=== PATIENT | female | born 1975 | race Caucasian/White ===

== ENCOUNTER 2019-06-15 13:25 | Inpatient (IN) ==
--- NOTE | 2019-06-15 13:43 | EKG Report ---
Test Performed on : 06/15/2019 1:31:29 PM Test Reason : chest pain Blood Pressure : / mmHG Vent. Rate : 049 BPM Atrial Rate : 049 BPM P-R Int : 174 ms QRS Dur : 098 ms QT Int : 442 ms P-R-T Axes : 033 011 010 degrees QTc Int : 399 ms Sinus bradycardia. Otherwise normal ECG When compared with ECG of 13-AUG-2016 21:35, No significant change was found Unconfirmed Result
--- NOTE | 2019-06-15 14:28 | Diag Imaging Result Doc PS360 ---
EXAM: CHEST-2 VIEWS 06/15/2019 HISTORY: chest pain TECHNIQUE: PA and lateral chest COMMENT: There are multiple old rib fractures on the left. There is no evidence of acute cardiac or pulmonary disease. Compared to the previous examination of 10/01/2018 there has been no significant change. IMPRESSION: No acute disease. Electronically signed by Rocael Cheung 06/15/2019 2:25 PM
[2019-06-15] MEDS ORDERED: TYLENOL PO ONE (14:42)
[2019-06-15] MEDS ORDERED: ASPIRIN PO ONE (14:42)
[2019-06-15 16:16] LABS: BASO# 0.01 X1000 (0.0-0.2); BASO% 0.2 % (0.0-0.8); EOS# 0.07 X1000 (0.0-0.7); EOS% 1.1 % (0.0-10.0); HEMATOCRIT 46.7 % (37.0-47.0); HEMOGLOBIN 14.8 g/dL (12.0-16.0); LYMPH# 2.01 X1000 (1.2-3.4); LYMPH% 31.9 % (20.5-51.1); MCH 28.3 PG (27-31); MCHC 31.7 g/dL (33-37); MCV 89.3 FL (81-99); MONO# 0.68 X1000 (0.11-0.59); MONO% 10.8 % (1.7-9.3); MPV 12.2 FL (7.4-10.4); NEUT# 3.54 X1000 (1.4-6.5); PLT 131 X1000 (130-400); RBC 5.23 XMIL (4.2-5.4); RDW 16.3 % (11.5-14.5); WBC 6.31 X1000 (4.8-10.8)
[2019-06-15 16:21] LABS: URINE SOURCE CLEAN CATCH
[2019-06-15 16:30] LABS: BILIRUBIN URINE NEGATIVE (NEGATIVE); BLOOD URINE NEGATIVE (NEGATIVE); COLOR YELLOW; GLUCOSE URINE NEGATIVE (NEGATIVE); KETONE URINE NEGATIVE (NEGATIVE); LEUKOCYTES URINE NEGATIVE (NEGATIVE); NITRITE URINE NEGATIVE (NEGATIVE); PH URINE 6.5; PROTEIN URINE NEGATIVE (NEGATIVE); SP GRAVITY URINE 1.013; TURBIDITY URINE HAZY (CLEAR); UROBILINOGEN URINE NORMAL (NORMAL)
[2019-06-15 16:32] LABS: UR EPITHELIAL CELLS <10 /HPF (<10); URINE BACTERIA 4+ /HPF; URINE RBC <10 /HPF (<10); URINE WBC <10 /HPF (<10)
[2019-06-15 16:56] LABS: ALB/GLOB RATIO 1.4; CREATININE 1.2 mg/dL (0.5-0.9); TOTAL BILIRUBIN 1.28 mg/dL (0.20-1.00); TOTAL PROTEIN 6.8 g/dL (6.3-8.3)
[2019-06-15 17:28] LABS: CK INDEX 0.3 (0.0-2.5); CK-MB 1.48 ng/mL (0.0-5.0)
[2019-06-15] MEDS ORDERED: NS 1,000 ML IV ONE (18:10)
--- NOTE | 2019-06-15 18:24 | PROVIDER DOCUMENTATION ---
This chart was entered by Pennie Schroeder Scribe, acting as scribe for Urbano Madrigal MD. HPI-Chest Pain - General Chief Complaint: Chest Pain Stated Complaint: CP Time Seen by Provider: 06/15/19 14:01 Source: patient Allergies/Adverse Reactions: Patient Allergies Allergy/AdvReac Type Severity Reaction Status Date / Time No Known Allergies Allergy Verified 10/04/18 14:36 Home Medications: Home Medication List Medication Instructions Recorded Confirmed Last Taken Type Hydrocodone/Acetaminophen [[place] 1 - 2 ea PO Q4-6H PRN PRN #16 tab 10/01/18 10/04/18 Unknown Rx 5-325 Tablet] Naproxen Sodium [Anaprox Ds] 550 mg PO Q12H PRN PRN #20 tab 10/04/18 Unknown Rx - History of Present Illness-CP Nature of Presenting Problem: 44 yowf p[resents to the ed with c/o 2 weeks of bradycardia (40's), dizziness, left suprapubic, chest pain and fatigue. pt had nerve block done 2 weeks prior a nd then sx begin. pt on exam is nontoxic in appearance and in no distress. Reports that father of heart attack in his 40s Location: reports: other (rt sided chest pain) Chest Pain Radiation: reports: no radiation Quality of Pain: reports: pressure Severity in ED: mild Onset/Duration: other (2 weeks) Timing: still present, intermittent Context/Activities at Onset: reports: light activity Modifying Factors: improves with: immobilization. worse with: palpation Associated Symptoms: reports: abdominal pain (left suprapubic), dizziness, shortness of breath. denies: back pain, fever/chills, nausea, vomiting Nitro Today/Relief: no nitro taken today Aspirin Treatment Today: no aspirin today Prior Chest Pain/Cardiac Workup: reports: other (bradycardia) Similar Symptoms Previously?: No Recently Seen Here or By Another Healthcare Provider: Yes (had nereve block done 2 weeks prior) Review of Systems - Adult - REVIEW OF SYSTEMS - ADULT Constitutional: denies: chills, fever Eyes: reports: no symptoms reported Ears, Nose, Mouth & Throat: reports: no symptoms reported Cardiovascular: reports: see HPI, chest pain, palpitations (slow heart rate). denies: syncope Respiratory: reports: see HPI, shortness of breath. denies: cough, wheezing Gastrointestinal: reports: see HPI, abdominal pain (left suprapubic). denies: diarrhea, nausea, vomiting Genitourinary: reports: no symptoms reported Musculoskeletal: reports: no symptoms reported Integumentary: reports: no symptoms reported Neurological: reports: see HPI, dizziness/vertigo. denies: headache/migraines, loss of balance, seizure, slurred speech, syncope Psychiatric: reports: no symptoms reported Endocrine: reports: no symptoms reported Hematologic/Lymphatic: reports: no symptoms reported Allergic/Immunologic: reports: no symptoms reported All Other Systems: Reviewed and Negative Past History - Adult - PAST MEDICAL HISTORY-ADULT Review of Records: reports: Old Records Reviewed, Nursing Assessment Review, Medications Reviewed, Social history reviewed & non-contributory. Major Childhood Illnesses: reports: denies history Cardiovascular: reports: other (bradycardia) Respiratory: reports: denies history Gastrointestinal: reports: denies history Obstetrical/Gynecological: reports: denies history Genitourinary: reports: denies history Musculoskeletal: reports: denies history Neurological: reports: denies history Psychiatric: reports: denies history Endocrine/Immune: reports: anemia Other Conditions: reports: denies history - PRIOR SURGERIES/PROCEDURES Surgical/Procedure History: reports: cholecystectomy, , tonsillectomy - IMMUNIZATION STATUS Childhood Immunizations: See Nurse Assessment Flu Vaccine: See Nurse Assessment - FAMILY HISTORY Family History: CAD under 55yo (dad of heart attack in his 40s) - SOCIAL HISTORY Smoking: quit greater than 1 year Substance Use: denies Living Situation: family Physical Exam-General - PHYSICAL EXAM-ADULT Initial Vital Signs Reviewed: Yes - CONSTITUTIONAL General Appearance: appears well, alert, mild distress, obese, anxious - EYES Eyes: PERRL/EOMI, pink conjunctivae - HEAD, EARS, NOSE, MOUTH & THROAT HENMT: moist mucous membranes - NECK Neck: non-tender, full range of motion, supple - RESPIRATORY Respiratory: lungs clear, normal breath sounds - CARDIOVASCULAR Cardiovascular: normal peripheral pulses, bradycardia (50) - CHEST (BREASTS) Chest/Breast: tenderness (with reproducibile pain) - GASTROINTESTINAL (ABDOMEN) Abdominal Exam: normal bowel sounds, non tender, soft - GENITOURINARY Female Genitalia/Pelvic Exam: deferred Rectal Exam: deferred Hemoccult Exam: deferred - LYMPHATIC Lymphatic: no adenopathy - MUSCULOSKELETAL Back Exam: no CVA tenderness, no vertebral tenderness Extremity: normal range of motion, non-tender, normal gait, normal inspection - SKIN Integumentary: normal color, normal turgor, warm/dry - NEUROLOGIC Neurologic: grossly normal - PSYCHIATRIC Psych/Mental Status: normal mood/affect, normal thought content, normal thought process, oriented x 3 - HEART Score HEART Score: History: Slightly Suspicious HEART Score: ECG: Normal HEART Score: Age: < or = 45 Years HEART Score: Risk Factors for Atherosclerotic Disease: 1 or 2 Risk Factors Progress - PLAN OF CARE/RESULTS Progress/Plan/Lab Results: Vital Signs - 8 hr 06/15/19 13:34 06/15/19 16:22 Temperature 98.8 F Pulse Rate 50 L 51 L Respiratory Rate 20 20 Blood Pressure 145/72 122/65 O2 Sat by Pulse Oximetry 96 98 Bedside Urine ED: Urine Bedside Start: 06/15/19 14:01 Freq: Status: Active Protocol: Activity Type Activity Date Activity User E-Sign Co-Sign Detail Recorded Client Recorded Date Recorded By Document 06/15/19 14:02 [id number] 06/15/19 14:02 [id number] 06/15/19 14:02 Point of Care [Bedside Point of Care] -Lot # [id number] - Results Negative -Control Line Visible? Yes Laboratory Results - last 24 hr 06/15/19 06/15/19 06/15/19 10:31 13:34 13:34 WBC 6.31 RBC 5.23 Hgb 14.8 Hct 46.7 MCV 89.3 MCH 28.3 MCHC 31.7 L RDW Std Deviation 16.3 H Plt Count 131 MPV 12.2 H Immature Gran % (Auto) 0.0 Neut % (Auto) 56.0 Lymph % (Auto) 31.9 [place] % (Auto) 10.8 H Eos % (Auto) 1.1 Baso % (Auto) 0.2 Immature Gran # (Auto) 0.00 Neut # (Auto) 3.54 Lymph # (Auto) 2.01 [place] # (Auto) 0.68 H Eos # (Auto) 0.07 Baso # (Auto) 0.01 Sodium 141 Potassium 4.0 Chloride 103 Carbon Dioxide 25 Anion Gap 13 BUN 15 Creatinine 1.2 H Estimated GFR/1.73 m2 49 BUN/Creatinine Ratio 13 Glucose 78 Calculated Osmolality 281 Calcium 10.0 Total Bilirubin 1.28 H AST 44 H ALT 40 H Alkaline Phosphatase 65 Creatine Kinase 475 H Creatine Kinase Index 0.3 CK-MB (CK-2) 1.48 Troponin T High Sens Total Protein 6.8 Albumin 4.0 Globulin 2.8 Albumin/Globulin Ratio 1.4 Urine Source CLEAN CATCH Urine Color YELLOW Urine Turbidity HAZY Urine pH 6.5 Ur Specific [place] 1.013 Urine Protein NEGATIVE Ur Glucose (Stick) NEGATIVE Ur Ketones (Stick) NEGATIVE Urine Blood NEGATIVE Urine Nitrite NEGATIVE Urine Bilirubin NEGATIVE Urobilinogen Dipstick NORMAL Urine Leukocytes NEGATIVE Urine WBC (Auto) <10 Urine RBC (Auto) <10 U Epithel Cells (Auto) <10 Urine Bacteria (Auto) 4+ 06/15/19 13:34 WBC RBC Hgb Hct MCV MCH MCHC RDW Std Deviation Plt Count MPV Immature Gran % (Auto) Neut % (Auto) Lymph % (Auto) [place] % (Auto) Eos % (Auto) Baso % (Auto) Immature Gran # (Auto) Neut # (Auto) Lymph # (Auto) [place] # (Auto) Eos # (Auto) Baso # (Auto) Sodium Potassium Chloride Carbon Dioxide Anion Gap BUN Creatinine Estimated GFR/1.73 m2 BUN/Creatinine Ratio Glucose Calculated Osmolality Calcium Total Bilirubin AST ALT Alkaline Phosphatase Creatine Kinase Creatine Kinase Index CK-MB (CK-2) Troponin T High Sens 8 Total Protein Albumin Globulin Albumin/Globulin Ratio Urine Source Urine Color Urine Turbidity Urine pH Ur Specific [place] Urine Protein Ur Glucose (Stick) Ur Ketones (Stick) Urine Blood Urine Nitrite Urine Bilirubin Urobilinogen Dipstick Urine Leukocytes Urine WBC (Auto) Urine RBC (Auto) U Epithel Cells (Auto) Urine Bacteria (Auto) Orders Category Date Time Status If abnormal EKG, order: NOW Care 06/15/19 13:38 Active CHEST-2 VIEWS [RAD] Stat Exams 06/15/19 13:38 Completed CBC WITH DIFF [HEME] Stat Lab 06/15/19 13:34 Completed CK PROFILE [SP CHEM] Stat Lab 06/15/19 13:34 Completed COMPREHENSIVE METABOLIC PANEL [CHEM] Stat Lab 06/15/19 13:34 Completed TROPONIN T HIGH SENSITIVITY Stat Lab 06/15/19 13:34 Completed TROPONIN T HIGH SENSITIVITY Stat Lab 06/15/19 17:13 Uncollected UA [URINALYSIS W/POSS RFLX CULT] [URINALYSIS] Stat Lab 06/15/19 10:31 Completed URINE CULTURE [RM] Routine Lab 06/15/19 16:00 Received 0.9% Sodium Chloride Inj [Ns] 1,000 ml Med 06/15/19 18:10 Active IV 999 mls/hr Acetaminophen [Tylenol] Med 06/15/19 14:42 Discontinued 500 mg PO NOW ONE Aspirin Med 06/15/19 14:42 Discontinued 325 mg PO NOW ONE CP/Palp <45 No Known Cardiac Hx Stat Oth 06/15/19 13:38 Ordered EKG [EKG] Stat Ther 06/15/19 13:38 Draft Result Diagrams: 06/15/19 13:34 06/15/19 13:34 - REASSESSMENT Reassessment #1 Time Reassessed: 18:22 Status: improving (Patient reports some inprovement . Denies any new sxs) - EKG 1 Time of EKG reading by physician:: 13:31 EKG Read and Signed by:: Hayde Monk EKG Interpretation (*Must complete 3 of following elements*): Normal Rate: 49 Rhythm: sinus bradycardia [place]: normal QRS: normal CT Interval: normal ST Wave: normal - XRAY 1 XRAY: Bilateral XRAY Study: Chest Impression: See EMR Report (EXAM: CHEST-2 VIEWS 06/15/2019 HISTORY: chest pain TECHNIQUE: PA and lateral chest COMMENT: There are multiple old rib fractures on the left. There is no evidence of acute cardiac or pulmonary disease. Compared to the previous examination of 10/01/2018 there has been no significant change. IMPRESSION: No acute disease. Electronically signed by Rocael Cheung 06/15/2019 2:25 PM 06/15/19 1425 Interpreting Physician: Rocael Cheung MD Dictated Date/Time: 06/15/19 1425 cc: Hayde Monk MD; Yesenia Jacinto) - CONSULTS/PCP/HOSPITALIST Notification #1 *Consult/PCP/Hospitalist*: ALLISON Salomon Time Discussed: 18:21 Consult Disposition: Admit (accepts admission for Dr aPthak) Departure - Departure Date of Disposition Decision: 06/15/19 Time of Disposition Decision: 18:21 DIAGNOSIS: Bradycardia with 41-50 beats per minute, Dizziness Chest pain Qualifiers: Chest pain type: unspecified Qualified Code(s): R07.9 - Chest pain, unspecified Disposition: ADMITTED INPATIENT 09 Certified Medical Emergency: Emergent Condition: Fair Referrals and Follow-Ups: Yesenia Jacinto CRNP [Primary Care Provider] - - Critical Care Note This patient required my direct & personal management of CC.: No Attestation - Physician/ TUNG Attestation Patient care was provided by Advanced Practice Provider:: No The physician spent face to face time with patient:: Yes Advanced Practice Provider documentation review:: Supervising physician onsite and consulted in the evaluation and care of this patient. The physician did have a face to face encounter with the patient. This chart was documented by the indicated scribe, (Pennie Schroeder Scribe) and accurately reflects the services I performed and decisions made by me, Urbano Madrigal MD, as attested by the provider's signature.
[2019-06-15 22:54] LABS: UR AMPHETAMINES QUAL NONE DETECTED (NONE DETECT); UR BARBITUATES QUAL NONE DETECTED (NONE DETECT); UR BENZODIAZEPIN QUAL NONE DETECTED (NONE DETECT); UR CANNABINOIDS QUAL NONE DETECTED (NONE DETECT); UR COCAINE QUAL NONE DETECTED (NONE DETECT); UR METHADONE QUAL NONE DETECTED (NONE DETECT); UR OPIATES QUAL NONE DETECTED (NONE DETECT); UR OXYCODONE QUAL NONE DETECTED (NONE DETECT); UR PCP QUAL NONE DETECTED (NONE DETECT)
[2019-06-16] MEDS: NORCO-7.5 PO PRN ×3 (01:55→19:07)
[2019-06-16] MEDS: NS 1,000 ML IV SCH ×3 (01:56→17:32)
[2019-06-16] MEDS: LOVENOX SUBQ SCH (01:56)
--- NOTE | 2019-06-16 06:08 | HISTORY AND PHYSICAL ---
CHIEF COMPLAINT: Chest pain, low heart rate. HISTORY OF PRESENT ILLNESS: This is a 44-year-old female. For the last 2 weeks has noticed that she was bradycardic in the 40s. She went to have a cervical spine epidural block a couple of weeks ago. They told her that her heart rate was in the mid 40s and 50s. She stated that she had a watch that tracked her heart rate so she had been keeping an eye on it at home, that it dropped as low as 38. She has had some chest pain substernal left into the left arm as well as fatigue and shortness of breath. She did not note any fever, chills, nausea, vomiting. She did not become diaphoretic. She states that nothing makes it better. Nothing makes it worse. It is a sharp pain. The dizziness that she complained of was intermittent. She states that she does see a primary care provider, Yesenia Jacinto, but states that she does not have any medical problems to speak of. Her father did pass away from a myocardial infarction in his 40s. She will be admitted for further evaluation and treatment. PAST MEDICAL HISTORY: Denies. PREVIOUS SURGICAL HISTORY: C-sections times 2, cholecystectomy, tonsillectomy. SOCIAL HISTORY: Lives at home with family. No tobacco, alcohol or illicit drugs. FAMILY HISTORY: Father from myocardial infarction in his 40s. HOME MEDICATIONS: No home medications. ALLERGIES: No known drug allergies. REVIEW OF SYSTEMS: Fourteen-point review of systems conducted with the patient. Pertinent positives listed above in the HPI. All other systems reviewed and negative. PHYSICAL EXAMINATION: VITAL SIGNS: Temperature 98.3, pulse 51, respirations 13, blood pressure 132/63, oxygen saturation 98% on room air. GENERAL: A pleasant 44-year-old female lying in the ER stretcher, answers all questions, alert and oriented times 3. HEENT: Head is atraumatic, normocephalic. Pupils equal, round, reactive to light. Extraocular eye movement is intact. Sclera is anicteric. Conjunctiva is pink. Oral mucosa is mildly dry. NECK: Supple. No JVD. No thyromegaly. Trachea is midline. No cervical lymphadenopathy. CARDIAC: S1, S2 appreciated. No murmurs, gallops, rubs. LUNGS: Clear to auscultation bilaterally. No rhonchi, wheezes, rales. Symmetric rise and fall with respirations. ABDOMEN: Soft, nondistended, nontender. Bowel sounds present all 4 quadrants, normoactive. No pulsatile mass. No organomegaly. EXTREMITIES: No clubbing, cyanosis or edema. Two-plus pedal pulses bilaterally. GENITOURINARY: No bladder distention. Patient voids. Otherwise deferred. NEUROLOGICAL: Alert and oriented times 3. Cranial nerves 2 through 12 grossly intact. DIAGNOSTIC DATA: Chest x-ray: No acute disease. EKG: Sinus bradycardia, rate 49. LABORATORY DATA: CBC within normal limits. Chemistry panel within normal limits other than a creatinine of 1.2. Total bilirubin 1.28. AST 44. ALT 40. CK 475. High- sensitivity troponins were 8 and 7 on recheck. Urine unremarkable. Toxicology screen is negative. ASSESSMENT: 1. Symptomatic bradycardia. 2. Chest pain, rule out acute myocardial infarction. 3. Acute kidney injury. 4. Transaminitis. PLAN: Admit patient to CICU. Monitor with telemetry. Consult Cardiology. Echocardiogram this morning. Recheck CK and troponin this morning. We will rehydrate with normal saline overnight. Recheck renal function panel. As far as transaminitis, patient's total bilirubin is also mildly elevated. May want to pursue a right upper quadrant ultrasound. This could likely be done outpatient. Further recommendation per patient clinical course. Dictated by FLORY Mendoza for Lucho Pathak MD I have performed a face to face diagnostic evaluation. Labs/xrays- reviewed. Exam: Chest-rhonchi, CV- regular. A/P- symptomatic bradycardia, chest pain- Admit, telemetry, cardiology consult. Dr. Pathak cc: FLORY Mendoza MD [facility]
--- NOTE | 2019-06-16 06:57 | EKG Report ---
Test Performed on : 06/16/2019 06:19:21 AM Test Reason : chest pain Blood Pressure : / mmHG Vent. Rate : 049 BPM Atrial Rate : 049 BPM P-R Int : 194 ms QRS Dur : 096 ms QT Int : 470 ms P-R-T Axes : 044 044 043 degrees QTc Int : 424 ms Critical Test Result: Low HR Sinus bradycardia. with sinus arrhythmia. Otherwise normal ECG When compared with ECG of 15-JUN-2019 13:31, (Unconfirmed) T wave inversion no longer evident in Inferior leads Confirmed by Kalyn Wallis MD ([id number]) on 06/16/2019 12:17:21 PM
[2019-06-16 07:43] LABS: CALCIUM 8.9 mg/dL (8.8-10.2); POTASSIUM 3.9 mmol/L (3.5-5.1)
[2019-06-16 08:19] LABS: CK INDEX 0.4 (0.0-2.5)
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
--- NOTE | 2019-06-16 11:02 | PROGRESS NOTE ---
DATE: 06/16/2019 SUBJECTIVE: This patient is still having some chest discomfort, but it is unclear if this is cardiac related. She has been having some bradycardia. Cardiology Department on board. She has some mild shortness of breath. OBJECTIVE: Vital Signs: Temperature 97.3 degrees, pulse 48, respiratory rate 16, blood pressure 102/56, oxygen saturation 99 on room air. HEENT: Head normocephalic. No trauma. PERRLA. Neck: Supple. No JVD. No masses. Central trachea. Chest: Clear to auscultation. No wheezing. No rales. Cardiovascular: Regular rate and rhythm. Bradycardic. Abdomen: Soft. Extremities: No clubbing, no cyanosis. Neurological: Patient is awake and alert. She is oriented x3. No focal deficits. LABORATORY DATA: Sodium 143, potassium 3.9, chloride 108, bicarbonate 23, BUN 13, creatinine 1, glucose 84, calcium 8.9. CK level 268. TSH 5.3. ASSESSMENT AND PLAN: 1. Symptomatic bradycardia. The patient has been evaluated by Cardiology Department. She is also complaining of some chest discomfort, but it sounds atypical for me. We will monitor this patient closely in the PVC unit. I do believe she is going today for a stress test. 2. Chest pain, atypical. High sensitive troponin has been negative. 3. Acute kidney injury. We have a previous result from May 2018 and also 2017, and the kidney function was normal. She came in with creatinine 1.2 and today is 1. We will continue with IV fluids. 4. Elevated CK level. I am not quite sure why the CK level is elevated as well as the liver function tests. I will repeat the levels tomorrow again. 5. Mild elevation of the TSH, probably this patient has some hypothyroidism, but I will recheck the TSH tomorrow as well as the T4 level. She certainly needs to follow this up as an outpatient as well. cc: Carloz Salazar MD
--- NOTE | 2019-06-16 12:47 | EKG Report ---
Test Performed on : 06/16/2019 11:33:34 AM Test Reason : chest pain Blood Pressure : / mmHG Vent. Rate : 059 BPM Atrial Rate : 059 BPM P-R Int : 192 ms QRS Dur : 102 ms QT Int : 406 ms P-R-T Axes : 022 008 013 degrees QTc Int : 401 ms Sinus bradycardia. Otherwise normal ECG When compared with ECG of 16-JUN-2019 06:19, (Unconfirmed) No significant change was found Confirmed by Kalyn Wallis MD ([id number]) on 06/16/2019 6:46:13 PM
--- NOTE | 2019-06-16 14:22 | ECHO REPORT ---
ORDER DATE: 06/16/2019 INTERPRETING PHYSICIAN: Dr. Anoop Orellana ECHOCARDIOGRAPHIC MEASUREMENTS: 1. Interventricular septum 0.8. 2. Left ventricular posterior wall 0.8. 3. Diastolic diameter 5.1. 4. Left atrium 3.3. 5. Aorta 3 cm. SUMMARY OF THE 2-DIMENSIONAL IMAGIN. Aortic valve leaflets are trileaflet. 2. Mitral valve was normal. 3. Tricuspid valve was normal. 4. Pulmonic valve was normal. 5. Normal left ventricular cavity size. Estimated ejection fraction of 65% to 70%. 6. There is mild tricuspid regurgitation. Peak velocity across the tricuspid valve was 2.2 meters/second. 7. Trace mitral regurgitation. 8. Peak velocity across the aortic valve less than 2 meters/second. There is no aortic stenosis or regurgitation. 9. There is no pericardial effusion or obvious intracardiac mass or thrombus seen. 10. There is trace pulmonary regurgitation. cc: MD Jose Bess CRNP
[2019-06-16] MEDS: TYLENOL PO PRN (20:13)
--- NOTE | 2019-06-16 23:38 | EKG Report ---
Test Performed on : 06/16/2019 9:56:30 PM Test Reason : chest pain Blood Pressure : / mmHG Vent. Rate : 053 BPM Atrial Rate : 053 BPM P-R Int : 190 ms QRS Dur : 098 ms QT Int : 430 ms P-R-T Axes : 037 025 021 degrees QTc Int : 403 ms Sinus bradycardia. Otherwise normal ECG When compared with ECG of 16-JUN-2019 11:33, No significant change was found Confirmed by Kalyn Wallis MD ([id number]) on 06/20/2019 7:38:35 AM
[2019-06-17] MEDS: LOVENOX SUBQ SCH (01:09)
[2019-06-17] MEDS: NORCO-7.5 PO PRN ×2 (05:01→11:15)
[2019-06-17] MEDS: NS 1,000 ML IV SCH ×2 (05:52→17:53)
[2019-06-17 06:18] LABS: ALB/GLOB RATIO 1.2; ALBUMIN 3.2 g/dL (3.5-5.0); CALCIUM 8.6 mg/dL (8.8-10.2); POTASSIUM 4.2 mmol/L (3.5-5.1); TOTAL BILIRUBIN 0.6 mg/dL (0.20-1.00); TOTAL PROTEIN 5.8 g/dL (6.3-8.3)
[2019-06-17 06:19] LABS: FREE T4 1.28 ng/dL (0.93-1.70); TSH 3.32 uIUmL (0.27-4.20)
[2019-06-17 06:43] LABS: CK INDEX 0.6 (0.0-2.5)
[2019-06-17] MEDS: TYLENOL PO PRN ×2 (08:22→21:50)
--- NOTE | 2019-06-17 09:19 | PROGRESS NOTE ---
DATE: 06/17/2019 The patient is completely alert and oriented. She is still complaining of some chest discomfort, especially sternal area which is sharp and tight. As per the patient she has sharp pain on and off in that area and also behind the right breast. Sometimes, also she has pain behind the left breast, radiated to the left arm and it is sharp and she feels some numbness sensation on the right arm. Yesterday. Cardiology Department evaluated this patient. I do not have the final results or recommendations. She is still bradycardic, and the heart rate has been mostly in the 40s and 50s. Her blood pressure during the night was in the 90s. At this moment it is 106/63. OBJECTIVE: Vital Signs: Temperature 97.9 degrees, pulse 55, respiratory rate 17, blood pressure 106/63, oxygen saturation 98 on room air. HEENT: Head normocephalic. No trauma. PERRLA. Neck: Supple. No JVD. No masses. Central trachea. Chest: Clear to auscultation. No wheezing. No rales. Cardiovascular: RRR. Bradycardic. Abdomen: Soft, nontender, nondistended. No hepatosplenomegaly. Extremities: No edema. No clubbing, no cyanosis. Neurological: The patient is awake, alert. She is oriented x3. No focal deficits. LABORATORY: Sodium 143, potassium 4.2, chloride 109, bicarbonate 24, BUN 9, creatinine 1, glucose 98, calcium 8.6. AST 84, ALT 61, alkaline phosphatase 64. CK 178. Bilirubin 0.6. Albumin 3.2. ASSESSMENT AND PLAN: 1. Symptomatic bradycardia. As per the patient, she is still having dizziness. Cardiology Department evaluated this patient. She is still complaining of some chest discomfort, but sounds atypical for me. It is sharp and sometimes tight in the middle of the chest. She also has some sharp pain behind the right breast and occasionally behind the left breast, radiated to the left arm. 2. Chest pain, atypical, high sensitive troponins x3 were negative. 3. Acute kidney injury. Kidney function seems to be stable. 4. Elevated CK level. I am not quite sure why the CK level is elevated but it is trending down. We will continue to monitor. Questionable mild rhabdomyolysis, but as per the patient, she did not have any trauma or exercise or anything that can explain this. 5. Elevated LFTs, this is not new. She has been having this issue before. Actually she has a result from 2017 that showed an elevation of the AST and ALT. I wonder if she has some fatty liver. cc: Carloz Salazar MD
[2019-06-17] MEDS: ZOFRAN IV PRN ×2 (11:30→15:01)
[2019-06-18] MEDS: LOVENOX SUBQ SCH (00:04)
[2019-06-18 06:47] LABS: HEMATOCRIT 37.9 % (37.0-47.0); HEMOGLOBIN 11.8 g/dL (12.0-16.0); MCH 28.9 PG (27-31); MCHC 31.1 g/dL (33-37); MCV 92.9 FL (81-99); MPV 11.4 FL (7.4-10.4); RBC 4.08 XMIL (4.2-5.4); RDW 16.7 % (11.5-14.5); WBC 3.84 X1000 (4.8-10.8)
[2019-06-18 07:12] LABS: ALB/GLOB RATIO 1.4; ALBUMIN 3.1 g/dL (3.5-5.0); CALCIUM 8.3 mg/dL (8.8-10.2); CREATININE 1.1 mg/dL (0.5-0.9); POTASSIUM 3.8 mmol/L (3.5-5.1); TOTAL BILIRUBIN 0.79 mg/dL (0.20-1.00); TOTAL PROTEIN 5.3 g/dL (6.3-8.3)
--- NOTE | 2019-06-18 10:21 | PROGRESS NOTE ---
DATE: 06/18/2019 I just re-evaluated the patient again, and she has been complaining of strong urine odor, but no dysuria, but she states that definitely the odor is way different. I will go ahead and put her on antibiotics. She has Escherichia coli urinary tract infection. On the other hand, she just remembered that she had a rash at the level of her face a few weeks ago, and disappeared spontaneously. Like I mentioned before, I am concerned about some kind of rheumatological problem, and likely I will get some blood work to rule this out. cc: Carloz Salazar MD
--- NOTE | 2019-06-18 10:34 | GASTROENTEROLOGY CONSULTATION ---
DATE: 06/18/2019 REASON FOR CONSULTATION: Elevated LFTs. HISTORY OF PRESENT ILLNESS: Ms. Lara is a 45-year-old lady who was having some symptoms of chest pain radiating to the left arm with a heart rate between 38 and 40. She has no previous history of similar pain. No fevers. PAST MEDICAL HISTORY: Negative. PAST SURGICAL HISTORY: Status post cholecystectomy, tonsillectomy, . SOCIAL HISTORY: She lives at home with family. Does not smoke or drink. FAMILY HISTORY: Myocardial infarction in 40s. HOME MEDICATIONS: None. ALLERGIES: None. REVIEW OF SYSTEMS: Otherwise negative. PHYSICAL EXAMINATION: Vital Signs: A young lady appears comfortable. Temperature 98 degrees, pulse 50, respirations 13, blood pressure 130/63, O2 saturation 98%. General: A 44-year-old lady in no distress. HEENT: No scleral icterus or conjunctival pallor. Neck: Supple. Trachea midline. Heart: Normal. Lungs: Normal. Abdomen: Soft, nontender. Bowel sounds present. Extremities: No cyanosis or clubbing. Neurological: Alert and oriented. DIAGNOSTIC DATA: Chest x-ray is normal. EKG: Sinus bradycardia. AST and ALT are in 300 range. Bilirubin is normal. IMPRESSION: 1. Symptomatic bradycardia. Strong family history of myocardial infarction. 2. Elevated liver function tests. She had gallbladder surgery done. There is a possibility that she may have a common duct stone. 3. Acute kidney injury, resolved. 4. Possible hypothyroidism contributing to bradycardia. 5. Gastrointestinal prophylaxis. 6. Deep vein thrombosis prophylaxis. PLAN: 1. I agree with the doing an ultrasound. 2. Stress test with Jna protocol. 3. Getting thyroid T4 levels. 4. Complete hepatitis profile. Will follow with you. If the ultrasound is negative to an and stress test is negative, then possibly doing an MRCP to look at the bile ducts but will see what the trend of the liver function tests would be tomorrow. cc: Sadie Shaffer MD
[2019-06-18] MEDS: ROCEPHIN 1 GM in NS 50 ML IV SCH (10:35)
--- NOTE | 2019-06-18 10:37 | PROGRESS NOTE ---
DATE: 06/18/2019 SUBJECTIVE: The patient is completely awake and she is oriented. She has been having dizziness every time she tries to stand up even though her heart rate on the monitor was around 60 to 61. She is still complaining of some chest pain but this is reproducible. It, is painful to palpation. It is sharp. Cardiac enzymes are negative and I believe the stress test was negative as well. CRP a couple days ago was 1.4, which is within normal limits as well and high sensitive troponin are negative x3. Her liver enzymes today went up significantly. I will get an ultrasound of the liver. I have stopped the acetaminophen. She took just 2 doses yesterday. I will ask the senior international tax manager to evaluate this patient. Her creatinine is still high, even though the BUN has been decreasing. Back in 2017 her creatinine was 0.9, in 2019 was or around 1, but now is between 1 and 1.2. She denies any allergies. She denies any rash. A couple days before coming to the hospital she notices a decreased urine output. She seems to be having a good urine output and she is eating right, but his her creatinine is a little bit high. She denies any immunological problems. Her TSH and T4 are normal, both from 06/17/2019. OBJECTIVE: Vital Signs: Temperature 98.9 degrees, pulse 64, respiratory rate 17, blood pressure 137/86, oxygen saturation 100% on room air. HEENT: Head normocephalic, no trauma. PERRLA. Neck: Supple. No JVD. No masses. Central trachea. Chest: Clear to auscultation. No wheezing. No rales. Cardiovascular: Cardiovascular RRR, chest wall tenderness to palpation at the level of the sternal area. Abdomen: Soft, nontender, nondistended. No hepatosplenomegaly. Extremities: No edema, no clubbing, no cyanosis. Neurological: The patient is awake. She is alert. She is answering all my questions. I do not see any rash. LABORATORY: WBC 3.8, hemoglobin 11.8, hematocrit 37.9, platelets 108,000. Sodium 139, potassium 3.8, chloride 108, bicarbonate 23, BUN 9, creatinine 1.1, glucose 93, calcium 8.3, AST 299, ALT 309, alkaline phosphatase 99. CK level is normal at 106. Albumin 3.1. ASSESSMENT AND PLAN: 1. Bradycardia, I am not sure if she is symptomatic or not with this, but she has been complaining of dizziness when she stand up. I will ask for orthostatic vital signs. She has some discomfort at the level of the chest, but it is reproducible, is painful to palpation in the middle of the chest, she described this as sharp. I do not think this is cardiac related. 2. Chest pain as above. Her high sensitive troponin were negative x3. 3. Acute kidney injury. I am not quite sure if this is acute or acute on chronic or just chronic kidney disease. Back in 2017 her creatinine was 0.9 and now has been between 1 and 1.2. I do not have a really good explanation for that. 4. Elevated CK level. I ask the patient about any kind of physical activity or trauma, but she denies that. She has been drinking water fine. The CK level normalized, but I do not have any good explanation for that either. 5. Elevated liver function tests. She has been having mild elevation of the liver function tests before but today they increased significantly. I will get the Gastroenterology Department to evaluate this patient. I will also get an ultrasound of the liver. 6. Dizziness, mostly when she stands up. I will get orthostatic vital signs. She is not having dizziness when moves the head. I do not think this positional. She has a urine culture that showed Escherichia coli, she is not on any antibiotics at this moment. I will discuss with her to see if she is symptomatic or not. I am not sure at this moment why this patient's liver function tests are high. I am not sure why this patient's creatinine has been a little bit high, even though she has been getting fluids, CK level normalized but I do not have any good explanation for that either. I wonder if she has some kind of rheumatological problems like vasculitis. Probably I will get some lab work and I would like the ragman to see her as an outpatient tomorrow. I will call for an appointment. cc: Carloz Salazar MD
--- NOTE | 2019-06-18 19:18 | Diag Imaging Result Doc PS360 ---
EXAM: US ABDOMEN-COMPLETE 06/18/2019 HISTORY: Elevated LFTs/ CKD TECHNIQUE: Abdominal ultrasound COMMENT: The pancreatic body is normal in appearance remainder is obscured. The visualized portions of the aorta and inferior vena cava are within normal limits. The liver is slightly hyperechoic. There is no evidence of biliary dilatation the common bile duct measuring 3 mm. There is antegrade flow in the portal vein. The spleen is normal in size. The kidneys are without evidence of hydronephrosis. There is a cyst in the upper pole of the left kidney measuring 1.2 cm in diameter. The gallbladder is surgically absent. IMPRESSION: Hepatic steatosis. No evidence of obstructive uropathy. Electronically signed by Rocael Cheung 06/18/2019 7:15 PM
[2019-06-18] MEDS: D5 1/2 NS 1,000 ML IV SCH ×2 (21:26→21:59)
[2019-06-19] MEDS: LOVENOX SUBQ SCH (00:50)
[2019-06-19 07:00] LABS: BASO# 0.02 X1000 (0.0-0.2); BASO% 0.4 % (0.0-0.8); EOS% 1.9 % (0.0-10.0); HEMATOCRIT 41.9 % (37.0-47.0); LYMPH# 1.88 X1000 (1.2-3.4); LYMPH% 35.3 % (20.5-51.1); MCH 28.3 PG (27-31); MCV 91.1 FL (81-99); MONO# 0.58 X1000 (0.11-0.59); MONO% 10.9 % (1.7-9.3); MPV 11.6 FL (7.4-10.4); NEUT# 2.74 X1000 (1.4-6.5); NEUT% 51.5 % (42.2-75.2); PLT 118 X1000 (130-400); RDW 16.7 % (11.5-14.5); WBC 5.32 X1000 (4.8-10.8)
[2019-06-19 07:13] LABS: INR 0.99; PROTIME 13.2 Seconds (11.0-16.0)
--- NOTE | 2019-06-19 07:16 | PROGRESS NOTE ---
DATE: 06/19/2019 SUBJECTIVE: The patient seems to be feeling a bit better today. Pending lab work. Back in 2017, this patient's creatinine was within normal limits, and now it is slightly elevated. Recently, a few weeks ago, she had a rash on her face that disappears by itself. On the other hand, she has also elevated liver function tests, and she has hepatic steatosis by ultrasound. I have consulted both the kidney doctor and the manager user experience to evaluate this patient. Cardiology Department on board for her bradycardia and dizziness. OBJECTIVE: Vital Signs: Temperature 97.4 degrees, pulse 51, respiratory rate 18, blood pressure 130/78, oxygen saturation 99 on room air. HEENT: Head normocephalic. No trauma. PERRLA. Neck: Supple. No JVD. No masses. Central trachea. Chest: Clear to auscultation. No wheezing. No rales. He is tender to palpation in the middle of the chest. Abdomen: Soft, nontender, nondistended. No hepatosplenomegaly. Extremities: No edema, no clubbing, no cyanosis. Neurological: The patient is awake. She is alert. She is answering all of my questions. Skin: I do not see any rash. LABORATORY DATA: Pending lab work at this moment. I asked for multiple studies, including JUAN, ANCA, CBC, CK complement, CMP, double-stranded DNA to rule out lupus, PT with INR, magnesium, phosphorus, hepatitis panel, and urine studies. ASSESSMENT AND PLAN: 1. Bradycardia. I am not sure if she is symptomatic for the bradycardia or any other problem, but she is feeling dizzy, mostly when she stands up. We did orthostatic vital signs yesterday in the afternoon, and the blood pressure dropped from 130 to 115 from the supine position to the sitting position, and actually the heart rate dropped from 57 to 47 with the same maneuver. Will continue to monitor this patient closely. Cardiology on board. I will discuss the case with Dr. Lara. 2. Chest pain, likely costochondritis. I do not think this is cardiac related. 3. Acute kidney injury. I am not quite sure if this is acute on chronic. She has a recent study that showed a creatinine of 1, but now it has been between 1 to 1.2, and back in 2017, it was 0.9. I am not quite sure if she is having some kind of rheumatological problem. I will ask Dr. Holt to see the patient. 4. Elevated CK level upon admission, now resolved. I do not have any source or any trauma to explain this. Probably, it could be related to a rheumatological problem, like polymyositis or any other. 5. Elevated liver function tests. Gastroenterology Department on board. Pending hepatitis profile. 6. Dizziness mostly when she stands up. As per #1. 7. Previous face rash. She is not having any rash at this moment, and the rash disappeared by itself. I will monitor. Probably, she needs to follow with a time study technologist as an outpatient. cc: Carloz Salazar MD
[2019-06-19 07:28] LABS: ALB/GLOB RATIO 1.1; ALBUMIN 3.1 g/dL (3.5-5.0); CALCIUM 8.6 mg/dL (8.8-10.2); MAGNESIUM 1.9 mg/dL (1.5-2.7); PHOSPHORUS 2.8 mg/dL (2.7-4.5); POTASSIUM 3.5 mmol/L (3.5-5.1); TOTAL BILIRUBIN 0.49 mg/dL (0.20-1.00); TOTAL PROTEIN 5.9 g/dL (6.3-8.3)
[2019-06-19] MEDS: ROCEPHIN 1 GM in NS 50 ML IV SCH (09:35)
[2019-06-19 09:54] LABS: URINE SOURCE VOIDED
[2019-06-19 10:02] LABS: COLOR BROWN; SP GRAVITY URINE 1.008; TURBIDITY URINE TURBID (CLEAR)
--- NOTE | 2019-06-19 10:25 | GASTROENTEROLOGY PROGRESS NOTE ---
DATE: 06/19/2019 SUBJECTIVE: Patient resting in bed. She is feeling better. She denies any nausea or vomiting. She continues to be bradycardic. She is being followed by cardiology. She denies any abdominal pain. She denies any blood in the stools. She denies any fevers, rigors, or chills. We discussed the liver enzymes profile with the patient. I have ordered her chronic liver disease workup. OBJECTIVE: Vital Signs: Temperature of 97.4 degrees, pulse of 51, respiratory rate 18, blood pressure 130/78 saturating 99% on room air. Body weight of 198 pounds, 4.8 ounces. BMI of 34.0 kg. General: Moderately-built, moderately nourished lying in bed, in no acute distress. HEENT: No pallor no icterus. Pupils equal, reactive to light. Neck: Supple. Abdomen: Soft, obese, nontender, nondistended. No guarding or rebound. Extremities: No cyanosis, clubbing. Neurologic: She is alert, awake, oriented. LABS: Hemoglobin and hematocrit is 13 and 41.9. White count of 5.3, platelet count of 118, Sodium 140, potassium 3.5, chloride 109, bicarb 22, anion gap 12, BUN of 10 creatinine 1, glucose of 107, calcium is 8.6, phosphorus 2.8, magnesium 1.9. Total bilirubin is 0.49, AST 149, ALT 259, alkaline phosphatase 110, total protein is 5.9, albumin of 3.1. INR 0.99, PT of 13.2. Ultrasound of the abdomen was done on 06/18/2018 which showed hepatic steatosis. No evidence of obstructive uropathy. There was no evidence of biliary dilation. The common bile duct measuring 3 mm. There is antegrade flow in the portal vein. There was a cyst in the upper pole of the left kidney measuring 1.2 cm. The gallbladder surgically absent. The pancreas is body is normal in appearance. The remainder is obscured. IMPRESSION/PLAN: 1. Bradycardia. Being evaluated by Cardiology. 2. Elevated liver enzymes. 3. Obesity. 4. Hepatic steatosis on ultrasound. 5. Chest pain likely secondary to costal chondritis. Cardiology is involved. 6. Acute kidney injury. This is being monitored by primary care team. 7. Dizziness likely secondary to symptomatic bradycardia. RECOMMENDATIONS: We will check chronic liver disease workup. The patient was counseled to lose weight to help treat fatty liver and hepatic steatosis. The patient is to follow up in the clinic in 3 weeks after discharge. At that time, we will discuss the chronic liver disease workup. Cardiology is on board for evaluation off chest pain and symptomatic bradycardia. The patient has UTI with E coli. She is on ceftriaxone per the primary team. She is on DVT prophylaxis with Lovenox. We will start on Pepcid once daily for GI prophylaxis. The above plans were discussed with the patient and all questions were answered. Please call with any further questions. cc: Parmjit Iglesias MD MTDD
[2019-06-19 10:27] LABS: UR EPITHELIAL CELLS <10 /HPF (<10); URINE BACTERIA NEGATIVE /HPF; URINE RBC TNTC /HPF (<10); URINE WBC TNTC /HPF (<10)
[2019-06-19 11:15] LABS: BILIRUBIN URINE MODERATE (NEGATIVE); GLUCOSE URINE NEGATIVE (NEGATIVE); KETONE URINE NEGATIVE (NEGATIVE); URINE CASTS NONE SEEN; URINE YEAST NONE SEEN
[2019-06-19 11:16] LABS: BLOOD URINE LARGE (NEGATIVE); LEUKOCYTES URINE LARGE (NEGATIVE); NITRITE URINE POSITIVE (NEGATIVE); PH URINE 6.5; PROTEIN URINE 300 mg/dL (NEGATIVE); UROBILINOGEN URINE NORMAL (NORMAL)
[2019-06-19 11:59] LABS: HEPATITIS PROFILE ACUTE SEE COMMENTS
[2019-06-19 12:19] LABS: UR CREAT RANDOM 42.1 mg/dL (11-20); UR PROT RANDOM 141.4 mg/dL
[2019-06-19 12:19] LABS: IRON SATURATION 15 %; TIBC 299 ug/dL; TOTAL IRON 44 ug/dL (49-151); UNBOUND IRON 255 ug/dL (112-346)
[2019-06-19] MEDS: D5 1/2 NS 1,000 ML IV SCH (13:35)
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
[2019-06-20] MEDS: LOVENOX SUBQ SCH (05:53)
[2019-06-20 06:53] LABS: BASO# 0.01 X1000 (0.0-0.2); BASO% 0.2 % (0.0-0.8); EOS# 0.15 X1000 (0.0-0.7); EOS% 2.9 % (0.0-10.0); HEMATOCRIT 40.9 % (37.0-47.0); HEMOGLOBIN 12.6 g/dL (12.0-16.0); LYMPH# 1.93 X1000 (1.2-3.4); LYMPH% 36.9 % (20.5-51.1); MCH 28.1 PG (27-31); MCHC 30.8 g/dL (33-37); MCV 91.3 FL (81-99); MONO# 0.45 X1000 (0.11-0.59); MONO% 8.6 % (1.7-9.3); MPV 11.7 FL (7.4-10.4); NEUT# 2.69 X1000 (1.4-6.5); NEUT% 51.4 % (42.2-75.2); PLT 115 X1000 (130-400); RBC 4.48 XMIL (4.2-5.4); RDW 16.7 % (11.5-14.5); WBC 5.23 X1000 (4.8-10.8)
[2019-06-20 07:40] LABS: ALB/GLOB RATIO 1.2; ALBUMIN 3.2 g/dL (3.5-5.0); POTASSIUM 3.6 mmol/L (3.5-5.1); TOTAL BILIRUBIN 0.41 mg/dL (0.20-1.00); TOTAL PROTEIN 5.9 g/dL (6.3-8.3)
[2019-06-20 08:32] VITALS: BP 147/68
[2019-06-20] MEDS: D5 1/2 NS 1,000 ML IV SCH (08:33)
[2019-06-20] MEDS ORDERED: MIRALAX PO SCH (09:00)
[2019-06-20] MEDS ORDERED: PEPCID PO SCH (09:00)
--- NOTE | 2019-06-20 09:49 | GRADED EXERCISE REPORT ---
PROCEDURE NAME: GXT REPORT - 06/16/2019 GXT: Patient exercised on Jan protocol for 10 minutes 15 seconds to a peak heart rate of 153. 86% predicted maximal heart rate achieved, 128% exercise capacity. There was no chest pain. Normal blood pressure response to exercise. There were no dysrhythmias noted. Stress electrocardiogram was negative for ischemia. CONCLUSIONS: 1. No chest pain. 2. Negative exercise stress electrocardiogram. 3. There were no dysrhythmias noted. cc: Anoop Orellana MD
--- NOTE | 2019-06-20 10:12 | EKG Report ---
Test Performed on : 06/20/2019 10:01:31 AM Test Reason : Bradycardia Blood Pressure : / mmHG Vent. Rate : 054 BPM Atrial Rate : 054 BPM P-R Int : 180 ms QRS Dur : 090 ms QT Int : 414 ms P-R-T Axes : 029 -02 000 degrees QTc Int : 392 ms Sinus bradycardia. Minimal voltage criteria for LVH, may be normal variant Nonspecific ST and T wave abnormality Abnormal ECG When compared with ECG of 16-JUN-2019 21:56, T wave inversion more evident in Anterior leads Confirmed by Bimal PARKER, Kalyn Garvin ([id number]) on 06/21/2019 1:00:39 PM
--- NOTE | 2019-06-20 10:38 | GASTROENTEROLOGY PROGRESS NOTE ---
DATE: 06/20/2019 SUBJECTIVE: Ms. Lara is a 44-year-old, female. She was sitting on the recliner having her breakfast. The patient has denied any nausea, vomiting, or abdominal pain. She did have one bowel movement today. The patient is still bradycardic. OBJECTIVE: Vital Signs: Temperature 98.4 degrees, pulse 59, respirations 15, blood pressure 147/68, oxygen saturation 98% on room air. Her weight is 198 pounds. BMI is 34.1 kg/m2. General: She is alert and oriented x3, and in no acute distress. HEENT: Pale conjunctivae. No icterus. PERRL. Neck: Supple. Lungs: Clear to auscultation. Cardiovascular: The patient is bradycardic. Abdomen: Soft, obese, nontender, nondistended. Active bowel sounds heard in all 4 quadrants. Extremities: No cyanosis, no clubbing, no edema. Pedal pulses 2+ bilaterally. Neurologic: She is alert and oriented x3. LABORATORY DATA: WBCs are 5.23, RBC 4.48, hemoglobin 12.6, hematocrit is 40.9, platelet count is 115,000. Sodium 140, potassium 3.6, chloride 105, carbon dioxide 24, anion gap 11, BUN 8, creatinine is 1.0, glucose 129, calcium 9.0. Total bilirubin is 0.41, AST 86, ALT 200, alkaline phosphatase is 113, albumin is 3.2. The patient's double-stranded DNA antibody is negative. Her complement C4 is within the normal limits. The patient's hepatitis profile was nonreactive. IMPRESSION AND PLAN: Elevated liver enzymes Bradycardia Chest pain Hepatic steatosis Acute kidney injury PLAN: Ms. Lara is a 44-year-old, female who is in the hospital for bradycardia and chest pain. The patient has been followed by the director microbiology. She had an exercise stress test done today, which showed that she did not have any chest pain, negative exercise stress electrocardiogram, and there were no dysrhythmias noted. Her heart rate had peaked to 153. The patient's chronic liver function labs are pending. Patient has discharged orders to go home today. We will follow her up as an outpatient in 3 to 4 weeks. This plan was discussed with Dr. Mccloud. Please call us for any further questions or concerns. Dictated by FLORY Ricci for Donavon Mccloud MD [email or web address]
[2019-06-20] MEDS: ROCEPHIN 1 GM in NS 50 ML IV SCH (11:02)
[2019-06-20 14:01] LABS: ANTINEUTROPHIL CYTOPLASMIC AB SEE COMMENTS
--- NOTE | 2019-06-21 05:25 | DISCHARGE SUMMARY ---
ADMISSION DATE: 06/15/2019 DISCHARGE DATE: 06/20/2019 DISCHARGE DIAGNOSES: 1. Bradycardia. 2. Dizziness. 3. Chest pain. 4. Mild elevation of acute kidney injury, resolved. 5. Elevated CK level upon admission. 6. Elevated liver function tests. 7. Previous face rash. PROCEDURES PERFORMED: 1. Chest x-ray dated 06/15/2019. Impression: No acute disease. 2. Echocardiogram dated 06/16/2019. Impression: Ejection fraction 65 to 70 percent. 3. Stress test dated 06/20/2019. Conclusions: No chest pain. Negative stress test electrocardiogram. No dysrhythmias noted. CONSULTATION: 1. Cardiology Department. 2. Gastroenterology Department. 3. Nephrology Department. HOSPITAL COURSE: A 44-year-old female admitted on 06/15/2019. She has been having 2 weeks noticing that she has been having bradycardia mostly in the 40s and 50s. She went to have a cervical spine epidural block a couple of weeks ago. They told her that her heart rate was in the mid 40s and 50s. She states that she had a watch that tracked her heart rate and has been keeping an eye on that at home, and it dropped as low as 38. She has been complaining of some substernal chest pain but this is reproducible with palpation. No fever. No chills. No nausea. No vomiting. Apparently, she had a rash on her face a few weeks ago that disappears by itself. Cardiology Department evaluated this patient. She had a stress test done that did not show any abnormality. Because of the mild elevation of the creatinine and also because of the elevation of the LFTs, Gastroenterology Department and Nephrology Department evaluated this patient. She will continue following up with Gastroenterology Department as an outpatient to monitor this, but she has a hepatic steatosis going on at this moment. We will rule out other conditions, hepatitis panel has been negative. She seems to be feeling much better now. She was having some dizziness on and off. I do not think this is related to the bradycardia. I think this could be related to any other problem, but today it was absent. I will discharge the patient home. She will follow up with Cardiology Department, which is going to give her a campus monitor. It is going to be mailed to her house. She does have a urinary tract infection with Escherichia coli, and even though she does not have any burning sensation or pain, she states that the odor was different and strong so we will continue to treat it. She will also follow up with Gastroenterology Department. I asked for some lab work to be checked by the headwaitress as an outpatient to rule out lupus and/or vasculitis and/or connective tissue disease due to the rash that she had recently. She seems to be stable today. She will be discharged home. Orthostatics were negative, and the vital signs are stable. DISCHARGE PHYSICAL EXAMINATION: Vital Signs: Temperature 98.4 degrees, pulse 59, respiratory rate 15, blood pressure 147/68, and oxygen saturation 98 percent on room air. HEENT: Head normocephalic. No trauma. PERRLA. Neck: Supple. No JVD. No masses. Central trachea. Cardiovascular: Regular rate and rhythm, a little bit bradycardic. Abdomen: Soft, nontender, and nondistended. No hepatosplenomegaly. Extremities: No edema. No clubbing. No cyanosis. Neurological: The patient is awake and alert. She is oriented x3. No focal deficits. LABORATORY: WBC 5.2, hemoglobin 12.6, hematocrit 40.9, and platelets 115,000. Sodium 140, potassium 3.6, chloride 105, bicarbonate 24, BUN 8, creatinine 1, glucose 129, and calcium 9. AST 86, ALT 200, and alkaline phosphatase 113. DISCHARGE MEDICATIONS: 1. Cephalexin 500 mg p.o. q.12 hours. 2. Pepcid 20 mg p.o. daily. 3. MiraLAX 17 g p.o. b.i.d. TIME SPENT: Time discharging this patient 35 minutes. cc: Carloz Salazar MD
== END 2019-06-20 13:06 | disposition home or self-care (01) | DRG 309 ==
LOC: ED 13:25 → 2N 22:21 → SUATTDRO 22:21
PROVIDERS: ATTEND Internal Medicine